=== PATIENT | female | born 1975 | race Two or more races ===

== ENCOUNTER 2021-08-20 10:29 | Outpatient (CLI) | payer OTHER | END 2021-08-20 10:44 | disposition home or self-care (01) | LOC: SONOGRAMA 10:29 | PROVIDERS: ATTEND Specialist | DX: N83.209 Unspecified ovarian cyst, unspecified side (principal) ==

== ENCOUNTER 2021-09-27 10:18 | Outpatient (CLI) | payer OTHER | END 2021-09-27 10:47 | disposition home or self-care (01) | LOC: MRI 10:18 | DX: G43.711 Chronic migraine without aura, intractable, with status migrainosus (principal) | CPT/HCPCS: 70551 ==

== ENCOUNTER 2022-08-11 14:56 | Outpatient (CLI) | payer OTHER | END 2022-08-11 15:06 | disposition home or self-care (01) | LOC: RAD 14:56 | PROVIDERS: ATTEND Orthopaedic Surgery | DX: M19.041 Primary osteoarthritis, right hand (principal); S46.091A Other injury of muscle(s) and tendon(s) of the rotator cuff of right shoulder, initial encounter ==

== ENCOUNTER 2022-09-19 14:13 | Outpatient (CLI) | payer OTHER | END 2022-09-19 14:21 | disposition home or self-care (01) | LOC: RAD 14:13 | PROVIDERS: ATTEND Orthopaedic Surgery | DX: S92.232A Displaced fracture of intermediate cuneiform of left foot, initial encounter for closed fracture (principal) ==

== ENCOUNTER 2022-10-30 11:52 | Outpatient (CLI) | payer OTHER | END 2022-10-30 12:04 | disposition home or self-care (01) | LOC: MAMO-SONO 11:52 | PROVIDERS: ATTEND Obstetrics & Gynecology | DX: N60.11 Diffuse cystic mastopathy of right breast (principal); N60.12 Diffuse cystic mastopathy of left breast; R10.2 Pelvic and perineal pain ==

== ENCOUNTER → 2022-11-05 08:25 | Outpatient (CLI) | payer OTHER | END | disposition home or self-care (01) | LOC: LAB 08:25 | PROVIDERS: ATTEND Obstetrics & Gynecology | DX: D64.9 Anemia, unspecified (principal); E03.8 Other specified hypothyroidism; N95.1 Menopausal and female climacteric states; I10 Essential (primary) hypertension; C51.9 Malignant neoplasm of vulva, unspecified; N30.00 Acute cystitis without hematuria; E83.51 Hypocalcemia; A64 Unspecified sexually transmitted disease; N39.0 Urinary tract infection, site not specified; R97.8 Other abnormal tumor markers; R79.89 Other specified abnormal findings of blood chemistry; E55.9 Vitamin D deficiency, unspecified; A60.9 Anogenital herpesviral infection, unspecified; Z12.11 Encounter for screening for malignant neoplasm of colon ==

== ENCOUNTER 2022-11-17 08:17 | Outpatient (CLI) | payer OTHER | END 2022-11-17 08:20 | disposition home or self-care (01) | LOC: LAB 08:17 | PROVIDERS: ATTEND Obstetrics & Gynecology | DX: N83.209 Unspecified ovarian cyst, unspecified side (principal) ==

== ENCOUNTER 2022-11-17 10:50 | Outpatient (CLI) | payer OTHER | END 2022-11-17 11:00 | disposition home or self-care (01) | LOC: MRI 10:50 | PROVIDERS: ATTEND Obstetrics & Gynecology | DX: N83.209 Unspecified ovarian cyst, unspecified side (principal); Z85.41 Personal history of malignant neoplasm of cervix uteri | CPT/HCPCS: 72197; 74183 ==

== ENCOUNTER 2023-04-28 09:01 | Emergency (ER) | payer OTHER ==
[~2023-04-28] VITALS: Ht 167.6 cm; Wt 61.2 kg
== END 2023-04-28 16:09 | disposition home or self-care (01) ==
LOC: ER
DX: M62.838 Other muscle spasm (principal); R07.81 Pleurodynia